=== PATIENT | male | born 1980 | race Caucasian/White ===

== ENCOUNTER 2024-09-05 11:12 | Emergency (ER) | payer BC, SELFPAY ==
[2024-09-05 11:14] VITALS: BP 177/118
--- NOTE | 2024-09-05 11:52 | ED.GENMED ---
History of Present Illness
General
Chief Complaint: Blood Pressure Problem
Source: patient
Time Seen by Provider: 09/05/24 11:25
History of Present Illness
History of Present Illness:
44-year-old male with past medical history of hypertension presenting to the emergency department for a intermittent lightheadedness sensation since Tuesday afternoon, waxing and waning, no aggravating factors, resolves spontaneously. No other
symptoms associated including chest pain, shortness of breath, headache, visual changes/diplopia, focal weakness or numbness, abdominal pain, nausea, vomiting. Patient denies any recent URI-like symptoms. He does note over the last few months
blood pressure has been more elevated than usual, had been previously well-controlled on amlodipine, switched to lisinopril about a year ago. Social history noted for occasional cigar use. Family history noted for mother with a history of cerebral
aneurysm and father with cardiac disease.
Past History
Past History
ED Past Medical History: HTN and Other (Gout, hypertension, previous fractured fifth metatarsal)
ED Past Surgical History: None
Social History
Tobacco: Other (Occasional cigar)
Alcohol: Occasional
Drug: None
Personal:
Living: with family
Employment: Employed
Family History
Family History: Hypertension
Review of Systems
Review of Systems
All Other Systems: ROS reviewed and negative except as documented in HPI and ROS
Phy Exam
Physical Exam
Physical Exam:
GENERAL: Alert , in no apparent distress
VITAL SIGNS: Hypertension noted
EYE: pupils equal and reactive, 4 mm bilateral, EOMI
NECK: Supple
ENT: o/p clr, mmm. TMs clear bilateral, no effusions
CARDIAC: Regular rate and rhythm .
LUNGS: Clear breath sounds bilaterally, no acute respiratory distress, no wheezes/rales/rhonchi
ABDOMEN: Soft, without focal tenderness, no r/g, no cvat
NEUROLOGICAL: Alert and oriented, no focal neuro deficits, ambulates with steady gait
SKIN: Warm and dry, skin intact.
MUSCULOSKELETAL: No edema, well perfused.
PSYCH: Normal and appropriate interaction.
Scores
Heart Failure Risk
Heart Failure Risk Score: Not Applicable
Heart Score for Chest Pain Patients
STEMI patient?: Not applicable
Withdrawal Assessment of Alcohol
Withdrawal Assessment Completed?: Not applicable
Course
Orders/Labs/Results
Orders:
Orders
09/05/24 11:16
ECG [Electrocardiogram (*1)] Urgent
Reason for Study: Hypertension, Benign
EKG- Treatment ONCE
09/05/24 11:33
Complete Blood Count/With Diff Urgent
Comprehensive Metabolic Panel Urgent
TSH Urgent
Troponin I Urgent
Urinalysis Reflex To Culture Urgent
Date Specimen was Collected: 09/05/24
Time Specimen was Collected: 11:28
09/05/24 12:18
CT Head W/o Iv Contrast Urgent
Comment:
Reason For Exam: HTN, lightheaded, mother hx aneurysm
Abnormal Lab Results
09/05/24
11:33
MCHC 32.6 L g/dL
(33.0-37.0)
MPV 10.9 H fL
(7.4-10.4)
Immature Gran % 0.6 H %
(0-0.5)
Monocytes % 9.5 H %
(1.7-9.3)
Glucose 107 H mg/dl
(70-99)
09/05/24 11:33
09/05/24 11:33
Vital Signs
Initial and Last Documented VS:
Initial Vital Signs
Temp Pulse Resp BP Pulse Ox
98.5 F 69 20 177/118 99
09/05/24 11:14 09/05/24 11:14 09/05/24 11:14 09/05/24 11:14 09/05/24 11:14
Last Documented Vital Signs
Temp Pulse Resp BP Pulse Ox
98.5 F 70 19 153/105 96
09/05/24 11:14 09/05/24 12:30 09/05/24 12:30 09/05/24 12:00 09/05/24 12:30
MDM/Problems Addressed
Differential Diagnosis Includes:
Hypertensive urgency, sinusitis, CVA, BPPV, labyrinthitis, vestibular neuritis, orthostasis
MDM/Problems Addressed:
44-year-old male with past medical history of hypertension presenting to the ER for intermittent lightheadedness. Patient adamant symptoms are not vertiginous. Unable to elicit any lightheadedness/dizziness with movement. Patient significantly
hypertensive. On record review patient has been profoundly hypertensive on multiple visits with similar systolic and diastolic ranges. I do suspect a component of poorly controlled blood pressure and likely needs medication adjustment as well as
lifestyle modifications although patient does note an ongoing shoulder issue which has limited him from being able to go to the gym over the last few months. Will check labs, EKG and CT of the head. Disposition pending with anticipation of need
for outpatient follow-up and medication adjustment.
Chronic conditions affecting care: HTN
Acute Exacerbation and/or Progression of Chronic Illness: HTN
*Radiology
Radiology exam reviewed: radiology read reviewed
*Pulse Oximetry
Patient hypoxic: no
*EKG
Heart Rate: 67
Rate: normal
Rhythm: sinus
QRS Pattern: other (incomplete right bundle branch block)
*Energy Administrator Interpretation
Rate: normal
Rhythm: sinus
*Critical Care Note
Total Time (30-74mins, 75-104mins- exclusive of procedures): Not Applicable
Data Reviewed
Review of Other/Old Records Reveals: Radiology Studies
Patient Management
Escalation/DeEscalation of care consider admission/obs:
Patient's workup unremarkable for any acute pathologies. CT did show a suspected arachnoid cyst and radiology recommended MRI for follow-up. Patient was provided with a printout of this report. I also notified patient's primary care provider for
expedited follow-up. Patient to keep a log of his blood pressures over the next few days. Aware of return precautions to the ER.
ED Attending Note
-
Portions of this chart may have been created with voice recognition software.� Occasional wrong word or��sound alike� substitutions may have occurred due to the inherent limitations of voice recognition software.
Discharge Plan
Departure
Patient Disposition: Home (Routine Discharge)
Date of Disposition: 09/05/24
Time of Disposition: 13:34
Patient with high blood pressure during this ER visit?: Yes
Discharge Problem:
Light-headedness, Hypertension
Instructions: High Blood Pressure (DC)
Prescriptions:
New
meclizine 25 mg tablet
25 mg PO BID PRN (Reason: dizziness) Qty: 10 0RF
No Action
Harrison Supplement
1 tab PO DAILY
Lisinopril
10 mg PO DAILY
amoxicillin-pot clavulanate [Augmentin] 875-125 mg Tablet
1 tab PO Q12H
diclofenac sodium 75 mg tablet,delayed release (DR/EC)
75 mg PO BID Qty: 10 0RF
Referrals:
Preez Baxter, DO [Family Provider] -
Interventions
Interventions:
*Risk Screen - Suicide Last Done: 09/05/24 11:34
*General Assessment Last Done: 09/05/24 11:14
*Neglect/Abuse Screening Last Done: 09/05/24 11:34
*ED- Fall Risk Assessment Last Done: 09/05/24 11:34
*ED COVID-19 Vaccine History Last Done: 09/05/24 11:34
ED- Cardiac Assessment Last Done: 09/05/24 11:39
ED- Neurological Assessment Last Done: 09/05/24 11:39
ED- Pulmonary Assessment Last Done: 09/05/24 11:39
Discharge Date and Time
Print Language: BULGARIAN
[2024-09-05 11:55] LABS: Urine Albumin Negative (Neg - Trace); Urine Bilirubin Negative (Negative); Urine Character Clear (Clear); Urine Color Yellow; Urine Glucose Negative (Negative); Urine Ketone Negative (Negative); Urine Leukocyte Negative (Negative); Urine Nitrite Negative (Negative); Urine Occult Blood Negative (Negative); Urine Urobilinogen Negative (Neg - 1+); Urine pH 6.5 (5.0-9.0)
[2024-09-05 12:00] VITALS: BP 153/105
[2024-09-05 12:00] LABS: % Basophils 0.6 % (0-2); % Immature Granulocytes 0.6 % (0-0.5); % Lymphocytes 36.2 % (20.5-51.1); % Monocytes 9.5 % (1.7-9.3); % Neutrophils 52.1 % (42.2-75.2); Absolute Eosinophils 0.1 10^3/uL (0-0.7); Absolute Lymphocytes 2.3 10^3/uL (1.2-3.4); Absolute Monocytes 0.6 10^3/uL (0.1-0.6); Absolute Neutrophils 3.3 10^3/uL (1.4-6.5); Hematocrit 46.6 % (39.0-52.0); Hemoglobin 15.2 g/dL (13.0-18.0); Mean Corp Hgb Conc. 32.6 g/dL (33.0-37.0); Mean Corpuscular Hgb 28.8 pg (27.0-31.0); Mean Corpuscular Volume 88.3 fL (80.0-94.0); Mean Platelet Volume 10.9 fL (7.4-10.4); Nucleated Red Blood Cells % 0 % (-); Platelet Count 204 10^3/uL (130-400); Red Blood Cell Count 5.28 10^6/uL (4.70-6.10); Red Cell Dist. Width 12.1 % (11.5-14.5); White Blood Cell Count 6.3 10^3/uL (4.8-10.8)
[2024-09-05 12:08] LABS: ALT (SGPT) 43 U/L (0-50); AST (SGOT) 24 U/L (17-59); Alkaline Phosphatase 55 U/L (38-126); Blood Urea Nitrogen 19 mg/dl (9-20); Calcium 8.9 mg/dl (8.4-10.2); Carbon Dioxide 28 mmol/L (22-30); Chloride 105 mmol/L (98-107); Glucose 107 mg/dl (70-99); Potassium 4.4 mmol/L (3.5-5.1); Sodium 141 mmol/L (135-145); Total Bilirubin 0.6 mg/dl (0.2-1.3); Total Protein 7.8 g/dl (6.3-8.2); eGFR > 60.00
[2024-09-05 12:19] LABS: Troponin I < 0.012 ng/ml
[2024-09-05 14:01] LABS: TSH 2.76 uIU/ml (0.47-4.68)
== END 2024-09-05 14:03 | disposition home or self-care (01) ==
LOC: EMR 11:12
PROVIDERS: Physician Assistant Medical; EMERGENCY PHYSICIAN Emergency Medicine; FAMILY PHYSICIAN Family Medicine
DX: R42 Dizziness and giddiness (principal); I10 Essential (primary) hypertension; I45.10 Unspecified right bundle-branch block; M10.9 Gout, unspecified; F17.290 Nicotine dependence, other tobacco product, uncomplicated; Z79.899 Other long term (current) drug therapy
CPT/HCPCS: 99284; 70450; 80053; 81003; 84443; 84484; 85025; 93005